=== PATIENT | male | born 1980 | race American Indian/Alaskan Native ===

== ENCOUNTER 2017-08-07 16:59 | Emergency (ER) | payer MEDICARE ==
[2017-08-07] MEDS ORDERED: ASPIRIN PO ONE (18:13)
[2017-08-07 18:39] LABS: Hematocrit 43.5 % (35.5-45.6); Hemoglobin 14.4 gm/dl (11.8-15.2); Mean Corpuscular HGB Conc 33 % (32-34); Mean Corpuscular Hemoglobin 28 pg (28-32); Mean Corpuscular Volume 84 fl (84-94); Platelet Count 239 K/mm3 (140-440); Red Blood Count 5.15 M/mm3 (3.65-5.03); Red Cell Distribution Width 15.7 % (13.2-15.2)
[2017-08-07 18:48] LABS: BUN/Creatinine Ratio 10; Blood Urea Nitrogen 10 mg/dL (9-20); Calcium 8.9 mg/dL (8.4-10.2); Hemolysis Index 4
--- NOTE | 2017-08-07 20:19 | XRay Report ---
FINAL REPORT EXAM: XR CHEST ROUTINE 2V HISTORY: cough/chest pain TECHNIQUE: Two view chest PA and lateral PRIORS: None. FINDINGS: Cardiac and mediastinal contours are unremarkable. No focal pulmonary infiltrate is identified. No pleural fluid collection seen. Pulmonary vasculature is unremarkable. IMPRESSION: Negative two-view chest
[2017-08-07] MEDS ORDERED: TORADOL IV ONE (22:57)
[2017-08-07] MEDS ORDERED: TYLENOL PO ONE (22:57)
[2017-08-07] MEDS ORDERED: SUBLIMAZE IV ONE (22:57)
[2017-08-07] MEDS ORDERED: NACL 0.9% 1000 ML IV ONE (22:57)
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
[2017-08-07 23:35] LABS: INR 0.93 (0.87-1.13)
--- NOTE | 2017-08-08 00:45 | Cat Scan Report ---
FINAL REPORT EXAM: CT ANGIO CHEST HISTORY: cp fever tachycardia TECHNIQUE: A CT angiogram was performed following the intravenous injection of iodinated contrast. MIP sagittal and coronal reconstructions were reviewed. FINDINGS: There is no evidence of pulmonary embolus or aortic dissection. The thoracic aorta is normal in caliber. The lungs are not congested. There are numerous calcified granulomas in the right hilum and in the subcarinal space in the mediastinum. There is mild atelectatic changes in both lung bases. Pleural fluid is not seen. There are calcified millimeters in the right lower lobe posteriorly. The heart is mildly enlarged. Pericardial fluid is not identified. There is no evidence of adenopathy. At the thoracic inlet the thyroid gland appears normal. In the upper abdomen the adrenal glands are not enlarged. The skeletal structures reveal multilevel disc degeneration in the dorsal spine. IMPRESSION: Cardiomegaly. No evidence of pulmonary embolus or aortic dissection. Very mild atelectatic changes in both lung bases. No evidence of pleural effusion. Calcified granulomas in the subcarinal space, right hilum and right lower lobe.
[2017-08-08] MEDS ORDERED: NACL 0.9% 1000 ML 0 ML ONE (01:41)
[2017-08-08 02:51] VITALS: BP 119/49
== END 2017-08-08 03:18 | disposition home or self-care (01) ==
LOC: ED 16:59
DX: R07.89 Other chest pain (principal); R05 Cough; R06.02 Shortness of breath; R53.81 Other malaise; R63.0 Anorexia; I10 Essential (primary) hypertension; Z89.512 Acquired absence of left leg below knee
CPT/HCPCS: 36415; 71046; 71275; 80048; 82140; 82550; 84484; 85027; 85610; 93005; 93010; 96374; 96375; 99285; J1885; J3010; J7030; Q9967

== ENCOUNTER 2017-12-28 21:55 | Emergency (ER) | payer MEDICARE ==
[2017-12-28] MEDS ORDERED: ASPIRIN PO ONE (22:17)
[2017-12-28 22:54] LABS: Basophils % (Auto) 0.6 % (0.0-1.8); Eosinophils # (Auto) 0.1 K/mm3 (0.0-0.4); Eosinophils % (Auto) 2.7 % (0.0-4.3); Hematocrit 42.6 % (35.5-45.6); Hemoglobin 14.1 gm/dl (11.8-15.2); Lymphocytes # (Auto) 1.9 K/mm3 (1.2-5.4); Mean Corpuscular HGB Conc 33 % (32-34); Mean Corpuscular Hemoglobin 28 pg (28-32); Mean Corpuscular Volume 84 fl (84-94); Monocytes # (Auto) 0.5 K/mm3 (0.0-0.8); Monocytes % (Auto) 10.5 % (0.0-7.3); Platelet Count 267 K/mm3 (140-440); Red Blood Count 5.09 M/mm3 (3.65-5.03); Red Cell Distribution Width 15.6 % (13.2-15.2)
[2017-12-28 23:05] LABS: BUN/Creatinine Ratio 10; Blood Urea Nitrogen 10 mg/dL (9-20); Calcium 9.2 mg/dL (8.4-10.2); Hemolysis Index 36
--- NOTE | 2017-12-29 05:49 | XRay Report ---
FINAL REPORT EXAM: XR CHEST 1V AP HISTORY: chest pain TECHNIQUE: AP portable view(s) of the chest obtained. PRIORS: 08/07/2017 FINDINGS: Examination is compromised by portable technique and soft tissue attenuation. The left costophrenic angle is incompletely visualized. No mediastinal shift. Cardiac silhouette is not enlarged for portable technique. No pneumothorax, effusion, or focal pulmonary opacity identified. No acute skeletal findings. IMPRESSION: No acute pulmonary finding identified. Incompletely visualized left costophrenic angle.
[2017-12-29] MEDS ORDERED: TYLENOL #3 PO ONE (05:51)
[2017-12-29] MEDS ORDERED: LASIX IV ONE (05:51)
[2017-12-29] MEDS ORDERED: LASIX PO ONE (05:53)
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
[2017-12-29] MEDS ORDERED: CATAPRES PO ONE (06:03)
[2017-12-29 06:19] VITALS: BP 124/73
== END 2017-12-29 06:31 | disposition home or self-care (01) ==
LOC: ED 21:55
DX: I10 Essential (primary) hypertension (principal); R07.89 Other chest pain; Z87.01 Personal history of pneumonia (recurrent); Z89.512 Acquired absence of left leg below knee
CPT/HCPCS: 36415; 71045; 80048; 83880; 84484; 85025; 93005; 93010

== ENCOUNTER 2020-10-10 14:06 | Emergency (ER) | payer OTHER, MEDICARE ==
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
--- NOTE | 2020-10-10 15:27 | XRay Report ---
CHEST 2 VIEWS INDICATION / CLINICAL INFORMATION: chest pain. COMPARISON: 12/29/2017 FINDINGS: SUPPORT DEVICES: None. HEART / MEDIASTINUM: Stable. LUNGS / PLEURA: No significant pulmonary or pleural abnormality. No pneumothorax. Suspected Calcified granuloma in the right lung base measures 6 mm. ADDITIONAL FINDINGS: No significant additional findings. IMPRESSION: 1. No acute findings. No significant interval change. Signer Name: Kale Nunn MD Signed: 10/10/2020 3:23 PM Workstation Name: [id number]
[2020-10-10 16:22] LABS: Basophils % (Auto) 0.4 % (0.0-1.8); Eosinophils # (Auto) 0.2 K/mm3 (0.0-0.4); Eosinophils % (Auto) 3.4 % (0.0-4.3); Hematocrit 41.1 % (35.5-45.6); Hemoglobin 13.6 gm/dl (11.8-15.2); Lymphocytes # (Auto) 1.6 K/mm3 (1.2-5.4); Lymphocytes % (Auto) 30.4 % (13.4-35.0); Mean Corpuscular HGB Conc 33 % (32-34); Mean Corpuscular Volume 86 fl (84-94); Monocytes # (Auto) 0.6 K/mm3 (0.0-0.8); Monocytes % (Auto) 11.1 % (0.0-7.3); Platelet Count 303 K/mm3 (140-440); Red Blood Count 4.76 M/mm3 (3.65-5.03); Red Cell Distribution Width 16.1 % (13.2-15.2)
[2020-10-10 16:46] LABS: Alanine Aminotransferase 30 units/L (7-56); Albumin 4.3 g/dL (3.9-5); BUN/Creatinine Ratio 16; Blood Urea Nitrogen 14 mg/dL (9-20); Hemolysis Index 0
[2020-10-10] MEDS ORDERED: POTASSIUM CHLORIDE ER 20 MEQ TAB PO ONE (20:57)
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
--- NOTE | 2020-10-10 23:16 | Cat Scan Report ---
CTA CHEST WITH IV CONTRAST INDICATION / CLINICAL INFORMATION: dyspnea, + d dimer. TECHNIQUE: Axial CT images were obtained through the chest after injection of 100 cc IV contrast. 3 plane MIP an d/or 3D reconstructions were produced. All CT scans at this location are performed using CT dose redu ction for [facility] by means of automated exposure control. COMPARISON: Prior CTA chest, 08/08/2017 and chest radiograph earlier today FINDINGS: PULMONARY ARTERIES: No pulmonary emboli. THORACIC AORTA: No significant abnormality. HEART: No significant abnormality. CORONARY ARTERIES: No significant calcification. PLEURA: No pleural effusion. No pneumothorax. LYMPH NODES: No significant adenopathy is noted. There are a few calcified lymph nodes in the subcari nal region and right hilum indicative of old granulomatous disease. LUNGS: There is linear scarring in the right lower lobe unchanged from 2018 CT scan. The lungs are ot herwise grossly clear. No suggestion of pneumonia, mass, or significant parenchymal disease. There is a calcified granuloma in the right lung base posteriorly. ADDITIONAL FINDINGS: None. UPPER ABDOMEN: No acute findings. SKELETAL STRUCTURES: Mild to moderate spondylitic changes present throughout the thoracic spine. No a cute significant osseous abnormality noted. IMPRESSION: 1. No CT evidence for pulmonary embolism. 2. No acute pulmonary or pleural disease. 3. Old granulomatous disease. Signer Name: Mony Arthur MD Signed: 10/10/2020 11:12 PM Workstation Name: [id number]
[2020-10-10 23:31] VITALS: BP 140/85
--- NOTE | 2020-10-12 10:37 | Electrocardiograph Report ---
[facility] Test Date: 2020-10-10 Test Time: 15:34:44 Pat Name: ANI JOE Department: Room: Gender: M Circulation Director: CLARITA : 1980 Requested By: ALBERTO TABARES Order Number: [id number] Reading MD: Ajay Bernardo Measurements Intervals Imogene Rate: 88 P: 58 ID: [id number] QRS: 11 QRSD: 84 T: -2 QT: 382 QTc: 462 Interpretive Statements Sinus rhythm No previous ECG available for comparison Electronically Signed On 10-12-2020 10:37:05 EDT by Ajay Bernardo
== END 2020-10-11 00:14 | disposition home or self-care (01) ==
LOC: ED 14:06
DX: R06.02 Shortness of breath (principal); R53.1 Weakness; G47.30 Sleep apnea, unspecified; Z91.19 Patient's noncompliance with other medical treatment and regimen; I10 Essential (primary) hypertension; Z98.890 Other specified postprocedural states; Z79.899 Other long term (current) drug therapy
CPT/HCPCS: 36415; 71046; 71275; 80053; 82550; 83735; 84484; 85025; 85379; 93005; 99285; Q9967